=== PATIENT | male | born 1940 | race Caucasian/White ===

== ENCOUNTER 2017-03-16 17:57 | Observation (INO) ==
--- NOTE | 2017-03-16 18:02 | Emergency Department Note ---
Disposition Clinical Impression: Lower gastrointestinal hemorrhage Disposition: Admitted As Inpatient Condition: Fair [facility] - Forms: ED Satisfaction Letter GI Bleed HPI - General Chief complaint: ED GI Bleed Stated complaint: GI bleed Time Seen by Provider: 03/16/17 17:58 Source: patient, EMS Mode of arrival: EMS Limitations: no limitations Nursing Notes Reviewed: Yes Vital Signs Reviewed: Yes - History of Present Illness HPI Narrative: 76-year-old male with history of previous rectal and colon cancer also cancer of the liver who comes in with rectal bleeding. When [facility] this has been a week ago but he states it's actually been about a month ago it started intermittently. That worse today with clots. He states it similar to what he had after the diagnosis of colon cancer. Pt Subjective Complaint: blood streaked stool Onset (ago): week(s) Consistency: constant Severity: moderate Improves with: nothing Worsens with: nothing Context: history of GI bleed, liver disease Associated symptoms: Reports: abdominal pain - Related Data Home Medications Medication Instructions Recorded Confirmed OxyCODONE Immed Rel [Roxicodone 5 5 mg PO Q4H PRN 06/24/16 03/16/17 MG] Albuterol Sulfate [Albuterol 2 puff IH Q4H PRN 03/16/17 03/16/17 Inhaler] Capecitabine [Xeloda] 1,000 mg PO AD 03/16/17 03/16/17 Docusate [Colace] 100 mg PO BID 03/16/17 03/16/17 Previous Rx's Medication Instructions Recorded Megestrol Acetate [Megace] 800 mg PO DAILY #400 mls 01/05/17 Allergies Allergy/AdvReac Type Severity Reaction Status Date / Time No Known Allergies Allergy Verified 11/24/16 13:47 All systems ED: reviewed and negative except as stated. Constitutional: Denies: fever, chills, weakness, weight change Eyes: Denies: eye pain, eye discharge, vision change ENT ED: Denies: ear pain, throat pain, dental pain, hearing loss, epistaxis, congestion, dysphagia Cardiovascular: Denies: chest pain, palpitations, dyspnea on exertion, edema, syncope Respiratory: Denies: cough, dyspnea, wheezes, hemoptysis, stridor Gastrointestinal: Reports: abdominal pain, hematochezia. Denies: nausea, vomiting, diarrhea, constipation, hematemesis, melena Genitourinary: Denies: urgency, dysuria, frequency, hematuria Musculoskeletal: Denies: back pain, neck pain, arthralgia, myalgia Integumentary: Denies: rash, abrasion, lesions Neurological: Denies: headache, weakness, numbness, paresthesias, confusion, abnormal gait, vertigo Psychiatric: Denies: anxiety, depression, suicidal thoughts, homicidal thoughts , auditory hallucinations, visual hallucinations Endocrine: Denies: fatigue Hematological/Lymphatic: Denies: easy bleeding, easy bruising Allergic/Immunologic: Denies: facial swelling, urticaria Past Medical History - Past Medical History Medical history: Reports: cancer, CVA Surgical history: Reports: cholecystectomy, herniorrhaphy, other Psychiatric history: Reports: no psych history - Social History Smoking Status: Former smoker Smokeless Tobacco Status: No Alcohol use: Reports: rarely Drug use: Reports: none Physical Exam - General Limitations: no limitations General appearance: alert, in no apparent distress - Head Head exam: atraumatic, normocephalic, normal inspection - Eye Eye exam: Present: normal appearance, PERRL, EOMI - ENT ENT exam: normal exam, normal oropharynx, mucous membranes moist - Neck Neck exam: Present: normal inspection, full ROM, trachea midline - Chest Chest inspection: Present: normal inspection, symmetric chest wall rise - Respiratory Respiratory exam: Present: normal lung sounds bilaterally - Cardiovascular Cardiovascular exam: Present: regular rate, normal rhythm, normal heart sounds - Abdominal Exam Abdominal exam: Present: soft, tenderness. Absent: guarding, rebound - Rectal Exam Rectal exam: Present: bloody stool - Extremities Exam Extremities exam: Present: normal inspection - Expanded Lower Extremity Exam Neurovascular/Tendon exam: Absent: motor deficit, sensory deficit, tendon deficit Gait: observed and normal - Back Exam Back exam: Present: normal inspection, full ROM. Absent: tenderness - Neurological Exam Neurological exam: Present: alert, oriented X3 - Psychiatric Psychiatric exam: Present: normal affect, normal mood - Skin Skin exam: Present: warm, dry, intact, normal color Course - Reevaluation(s) Reevaluation #1: 76-year-old with a history of colon cancer comes in with rectal bleeding. He does have a drop in his hemoglobin about 2 g since his last one here. He T scan was negative for acute findings. The concern is recurrence of the cancer. Patient will be admitted for further evaluation and treatment. Time: 19:55 - Consultations Consultation #1: Discussed with , admit. Time: 19:55 Vital Signs Temperature 98.2 F 03/16/17 17:58 Pulse Rate 68 03/16/17 17:58 Respiratory Rate 18 03/16/17 17:58 Blood Pressure 121/82 03/16/17 17:58 O2 Sat by Pulse Oximetry 96 03/16/17 17:58 Temperature 98.2 F 03/16/17 17:58 Pulse Rate 68 03/16/17 17:58 Respiratory Rate 18 03/16/17 17:58 Blood Pressure 121/82 03/16/17 17:58 O2 Sat by Pulse Oximetry 96 03/16/17 17:58 Oxygen Delivery Oxygen Delivery Room Air GI Bleed - Lab Data Result diagrams: 03/16/17 18:19 03/16/17 18:19 Lab Results 03/16/17 03/16/17 03/16/17 Range/Units 18:19 18:19 18:19 WBC 6.1 (4.3-11.1) K/mcL RBC 4.16 L (4.19-5.50) M/mcL Hgb 12.2 L (12.9-16.9) g/dL Hct 38.0 (37.5-50.1) % MCV 91.3 (83.0-100.0) fL MCH 29.3 (28.0-33.3) pg MCHC 32.1 (31.6-35.5) g/dL RDW 19.9 H (11.5-14.5) % Plt Count 194 (140-400) K/mcL MPV 9.0 L (9.4-12.4) fL Immature Gran % 0.5 (0-4) % Seg Neutrophils % 71.9 % Lymphocytes % 14.1 % Monocytes % 12.0 % Eosinophils % 0.7 % Basophils % 0.8 % Neutrophils # 4.4 (1.6-8.9) K/mcL Lymphocytes # 0.9 (0.6-4.6) K/mcL Monocytes # 0.7 (0.0-1.3) K/mcL Eosinophils # 0.0 (0.0-0.6) K/mcL Basophils # 0.1 (0.0-0.2) K/mcL Immature Plt Fraction 1.9 (1.1-6.1) % PT 11.8 (9.4-12.1) Seconds INR 1.1 APTT 25.6 L (26.0-36.0) Seconds Sodium 137 (136-145) mEq/L Potassium 4.0 (3.5-5.1) mEq/L Chloride 108 H (98-107) mEq/L Carbon Dioxide 23 (23-29) mEq/L BUN 12 (8-23) mg/dL Creatinine 0.52 L (0.70-1.30) mg/dL Est GFR ( Amer) > 60 (> 60) Est GFR (Non-Af Amer) > 60 (> 60) BUN/Creatinine Ratio 23 (6-26) Glucose 93 (70-105) mg/dL Calculated Osmolality 283 (280-300) Calcium 9.1 (8.6-10.3) mg/dL Troponin I (< 0.04) ng/mL Blood Type Antibody Screen 03/16/17 03/16/17 Range/Units 18:19 18:19 WBC (4.3-11.1) K/mcL RBC (4.19-5.50) M/mcL Hgb (12.9-16.9) g/dL Hct (37.5-50.1) % MCV (83.0-100.0) fL MCH (28.0-33.3) pg MCHC (31.6-35.5) g/dL RDW (11.5-14.5) % Plt Count (140-400) K/mcL MPV (9.4-12.4) fL Immature Gran % (0-4) % Seg Neutrophils % % Lymphocytes % % Monocytes % % Eosinophils % % Basophils % % Neutrophils # (1.6-8.9) K/mcL Lymphocytes # (0.6-4.6) K/mcL Monocytes # (0.0-1.3) K/mcL Eosinophils # (0.0-0.6) K/mcL Basophils # (0.0-0.2) K/mcL Immature Plt Fraction (1.1-6.1) % PT (9.4-12.1) Seconds INR APTT (26.0-36.0) Seconds Sodium (136-145) mEq/L Potassium (3.5-5.1) mEq/L Chloride (98-107) mEq/L Carbon Dioxide (23-29) mEq/L BUN (8-23) mg/dL Creatinine (0.70-1.30) mg/dL Est GFR ( Amer) (> 60) Est GFR (Non-Af Amer) (> 60) BUN/Creatinine Ratio (6-26) Glucose (70-105) mg/dL Calculated Osmolality (280-300) Calcium (8.6-10.3) mg/dL Troponin I 0.03 (< 0.04) ng/mL Blood Type O POSITIVE Antibody Screen NEGATIVE - EKG Data EKG attestation: Yes I reviewed and interpreted this EKG. EKG shows normal: sinus rhythm Rate: normal Rhythm: NSR Interpretation: no acute changes
[2017-03-16 18:26] LABS: Hemoglobin 12.2 g/dL (12.9-16.9); Immature Granulocytes % 0.5 % (0-4); Immature Platelets 1.9 % (1.1-6.1); Lymphocytes % 14.1 %; Mean Corpuscular HGB Conc 32.1 g/dL (31.6-35.5); Mean Corpuscular Hemoglobin 29.3 pg (28.0-33.3); Mean Corpuscular Volume 91.3 fL (83.0-100.0); Platelet Count 194 K/mcL (140-400); Red Blood Count 4.16 M/mcL (4.19-5.50); Red Cell Distribution Width 19.9 % (11.5-14.5); Segmented Neutrophils % 71.9 %
[2017-03-16 18:27] LABS: Basophils # 0.1 K/mcL (0.0-0.2); Basophils % 0.8 %; Eosinophils % 0.7 %; Lymphocytes # 0.9 K/mcL (0.6-4.6); Monocytes # 0.7 K/mcL (0.0-1.3); Neutrophils # 4.4 K/mcL (1.6-8.9)
[2017-03-16 18:31] LABS: INR 1.1; Prothrombin Time 11.8 Seconds (9.4-12.1)
[2017-03-16 18:34] LABS: Activated Partial Thrombo Time 25.6 Seconds (26.0-36.0)
[2017-03-16 18:39] LABS: BUN/Creatinine Ratio 23 (6-26); Blood Urea Nitrogen 12 mg/dL (8-23); Calcium 9.1 mg/dL (8.6-10.3); Carbon Dioxide 23 mEq/L (23-29); Chloride 108 mEq/L (98-107); Glucose 93 mg/dL (70-105); Osmolality,Calculated 283 (280-300); Sodium 137 mEq/L (136-145); eGFR For African Americans > 60 (> 60); eGFR For Non-African Americans > 60 (> 60)
[2017-03-16] MEDS ORDERED: Naloxone 0.4 MG/ML INJ IVP PRN (23:24)
--- NOTE | 2017-03-17 00:02 | Internal Med History&Physical ---
Date of Encounter: 03/16/17 Time of Encounter: 23:30 Assessment and Plan (1) Bloody diarrhea Current visit: No Status: Acute Concerning for recurrence of colon cancer. CT without clear evidence of mass. - Consult GI for assistance - 2 large bore IVs - Type/screen - Q8H H&H (2) Rectal cancer Current visit: No Status: Acute Followed by [facility]. Has liver mets per report (s/p resection) - Hold chemo for tonight, can discuss resuming with oncology if hospitalization is prolonged (3) COPD (chronic obstructive pulmonary disease) Current visit: Yes Status: Acute On PRN O2 at home - Continue O2 PRN Qualifiers: COPD type: emphysema Emphysema type: unspecified Qualified Code(s): J43.9 - Emphysema, unspecified Internal Medicine - H&P: HPI Chief complaint: Bright red blood per rectum Admitted From: Emergency Dept Plans for Post Hospital Care: Home History of present illness: Mr. Zambrano is a 76 year old male with history of colon cancer diagnosed 12/2015 s/p surgery, radiation and currently on chemotherapy who presented to the [facility] this afternoon for hematochezia. He states that he has seen small amounts of bright red blood in his stool occasionally for the past month or so. This morning, however, there was a large amount of blood, it was dark and clotted. [facility] for further management. He states that he has been feeling lightheaded occasionally. He had several stools today but none since 1630. Hgb was found to be 12 in the ED. He endorses abdominal pain which has been present since his colon surgery 09/2016 in [place] - the pain is unchanged from baseline. He was mildly nauseated yesterday but has not vomited. Past Med Surg Social Fam HX - Past Medical History Medical history: cancer (Colon cancer followed by Dr. Dahl - on capcitabine), CVA Psychiatric history: no psych history - Past Surgical History Surgical History: cholecystectomy, herniorrhaphy, other - Social History Smoking Status: Former smoker Smokeless Tobacco Status: No Alcohol use: rarely Drug use: none - Family History Sister Hx Family Cancer: Yes (colon cancer) Internal Medicine - H&P: Meds OxyCODONE Immed Rel [Roxicodone 5 MG] 5 mg PO Q4H PRN 06/24/16 [History] Megestrol Acetate [Megace] 800 mg PO DAILY #400 mls 01/05/17 [Rx] Albuterol Sulfate [Albuterol Inhaler] 2 puff IH Q4H PRN 03/16/17 [History] Capecitabine [Xeloda] 1,000 mg PO AD 03/16/17 [History] Docusate [Colace] 100 mg PO BID 03/16/17 [History] 3 Allergy/AdvReac Type Severity Reaction Status Date / Time No Known Allergies Allergy Verified 11/24/16 13:47 All Systems PM: A 10-system review of systems was performed and is negative for pertinent findings except as documented above in the HPI. - Constitutional Vitals: Temp Pulse Resp BP Pulse Ox 98.0 F 68 14 120/79 95 03/16/17 21:32 03/16/17 21:32 03/16/17 21:32 03/16/17 21:32 03/16/17 21:32 General appearance: Present: A&O X 3, no acute distress - Head Head exam: Present: atraumatic - Eye Eye exam: Present: EOMI, sclera anicteric - ENT ENT exam: Present: mucous membranes moist - Neck Neck exam general surgery: Present: supple - Respiratory Respiratory exam: Present: CTAB - Cardiovascular Cardiovascular exam: Present: RRR. Absent: diastolic murmur, gallop, rubs, systolic murmur - GI/Abdominal GI/Abdominal exam: Present: soft, tenderness (mildly tender throughout). Absent : guarding, rebound - Extremities Exam Extremities exam: Absent: pedal edema - Neurological Exam Neurological exam: Present: no focal deficits - Skin Skin exam: Absent: rash Internal Med - H&P Results - Labs CBC & Chem 7: 03/16/17 18:19 03/16/17 18:19
[2017-03-17 00:10] LABS: Hemoglobin 11.9 g/dL (12.9-16.9)
[2017-03-17] MEDS: 0.9 % Sodium Chloride 1,000 ML IVC SCH (04:55)
[2017-03-17] MEDS: *HR* OxyCODONE Immed Rel 5 MG TABLET PO PRN (04:55)
[2017-03-17] MEDS: Megestrol Acetate 400 MG/10 ML UDC PO SCH (09:02)
--- NOTE | 2017-03-17 10:28 | Gastroenterology Consult Note ---
<Parish Mcneal Sabine - Last Filed: 03/17/17 10:33> Date of Encounter: 03/17/17 Time of Encounter: 10:00 - Assessment and plan (1) Lower gastrointestinal hemorrhage Current Visit: Yes Status: Acute Assessment and plan: Pt with history of stage IV colon cancer who presented with rectal bleeding. Continue to monitor CBC and transfuse as needed. Plan for colonoscopy tomorrow. Clear liquid diet today, no red or purple. NPO at midnight. If unable tolerate NuLytely please use MiraLAX prep. If not clear by 6 AM, give 2 tap water enemas. (2) Rectal cancer Current Visit: No Status: Acute (3) Liver metastases Current Visit: No Status: Acute - Time Spent With Patient Total time spent is greater than 50% in coordination of care (as documented) at patient's floor/unit and/or counseling patient: GI History of Present Illness - Data of Consult Patient: new to practice Consult date: 03/17/17 Requesting Physician: Krista Burroughs - Consult Narrative Reason for consult: Rectal bleeding History of present illness: Mr. Zambrano is a 76 year old male with PMHx of stage IV colon cancer (with mets to liver) diagnosed 12/2015 s/p surgery, radiation, and currently on chemotherapy, s/p left lateral liver segmentectomy 09/2016, who presented to the [facility] with hematochezia. He states that he has seen small amounts of bright red blood in his stool occasionally for the past monthand the morning of admission he reports a large amount of blood, which was dark and clotted. He went to the [facility] and was sent to [facility] for further management. He endorses abdominal pain which has been present since his colon surgery 09/2016 in [place] - the pain is unchanged from baseline. We have been consulted to evaluate his rectal bleeding. Hgb on admission was 12.2 and this AM Hgb 11.9. Procedures: Colonoscopy 12/14/2016 Dr. Jackson: Diverticulosis, radiation colitis , multiple telengectasia. Colonoscopy 09/2015: low-grade rectal adenocarcinoma NSAIDs: None Anticoagulation: None Past Med Surg Social Fam HX - Past Medical History Medical history: cancer (Colon cancer followed by Dr. Dahl - on capcitabine), CVA Psychiatric history: no psych history - Past Surgical History Surgical History: cholecystectomy, herniorrhaphy, other - Social History Smoking Status: Former smoker Smokeless Tobacco Status: No Alcohol use: rarely Drug use: none - Family History Sister Hx Family Cancer: Yes (colon cancer) - Gastrointestinal Gastrointestinal: Present: as per HPI - Constitutional Constitutional: as per HPI - EENT Eyes: as per HPI Ears: Present: as per HPI Nose, mouth and throat: Present: as per HPI - Cardiovascular Cardiovascular ROS: Present: as per HPI - Respiratory Respiratory IM: Present: as per HPI - Genitourinary Genitourinary: Absent: change in color, Urinary frequency - Neurological ROS Neurological GI: Present: as per HPI - Hematologic/Lymphatic Hematologic/Lymphatic pediatric: Present: as per HPI - Musculoskeletal Musculoskeletal ROS GI: Present: as per HPI - Integumentary Integumentary GI: Present: as per HPI - Psychiatric ROS Psychiatric GI: Present: as per HPI - Endocrine Endocrine IM: Present: as per HPI - Constitutional Vitals: Temp Pulse Resp BP Pulse Ox 97.7 F 69 20 111/73 92 03/17/17 06:58 03/17/17 06:58 03/17/17 06:58 03/17/17 06:58 03/17/17 06:58 General appearance: Present: cooperative, A&O X 3, no acute distress, answers questions appropriately - Head Head exam: Present: atraumatic, normocephalic - Eye Eye exam: Present: normal appearance, sclera anicteric - ENT ENT exam: Present: mucous membranes dry - Neck Neck exam general surgery: Present: normal inspection, trachea midline - Respiratory Respiratory exam: Present: CTAB. Absent: rales, rhonchi - Cardiovascular Cardiovascular exam: Present: RRR, +S1, +S2 - GI/Abdominal GI/Abdominal exam: Present: soft, tenderness (Mild, generalized), no peritoneal signs. Absent: distended, firm, guarding Additional comments: Midline abdominal scar. - Rectal Rectal exam: Present: deferred - Extremities Exam Extremities exam: Present: warm - Neurological Exam Neurological exam: Present: no focal deficits - Psychiatric Psychiatric exam: Present: normal affect, normal mood - Skin Skin exam: Present: dry, intact, normal color, warm Results - Labs CBC & Chem 7: 03/17/17 00:01 03/16/17 18:19 Labs: Last Result Calcium 9.1 mg/dL (8.6-10.3) 03/16/17 18:19 Troponin I 0.03 ng/mL (< 0.04) 03/16/17 18:19 Entire Visit Hgb 11.9 g/dL (12.9-16.9) L 03/17/17 00:01 Hct 37.0 % (37.5-50.1) L 03/17/17 00:01 PT 11.8 Seconds (9.4-12.1) 03/16/17 18:19 - ABG ABG results: PT/INR, D-dimer PT 11.8 Seconds (9.4-12.1) 03/16/17 18:19 Consult Discharge Plan - Plan Referrals: [facility] [Outside] <Noelle Veronica - Last Filed: 03/17/17 14:25> Date of Encounter: 03/17/17 Time of Encounter: 14:00 - Time Spent With Patient Total time spent is greater than 50% in coordination of care (as documented) at patient's floor/unit and/or counseling patient: GI History of Present Illness - Data of Consult Requesting Physician: Krista Burroughs - Consult Narrative History of present illness: Mr. Zambrano is a 76 year old male - Constitutional Vitals: Temp Pulse Resp BP Pulse Ox 97.8 F 81 18 107/69 95 03/17/17 11:44 03/17/17 11:44 03/17/17 11:44 03/17/17 11:44 03/17/17 11:44 Results - Labs CBC & Chem 7: 03/17/17 00:01 03/16/17 18:19 Labs: Last Result Calcium 9.1 mg/dL (8.6-10.3) 03/16/17 18:19 Troponin I 0.03 ng/mL (< 0.04) 03/16/17 18:19 Entire Visit Hgb 11.9 g/dL (12.9-16.9) L 03/17/17 00:01 Hct 37.0 % (37.5-50.1) L 03/17/17 00:01 PT 11.8 Seconds (9.4-12.1) 03/16/17 18:19 - ABG ABG results: PT/INR, D-dimer PT 11.8 Seconds (9.4-12.1) 03/16/17 18:19 - Attending Attestation I examined this patient and my medical decision-making was reviewed with the Resident Physician. I agree with the documented findings, disposition and treatment plan as described except to the extent set forth below.
--- NOTE | 2017-03-17 15:28 | Internal Med Progress Note ---
Date of Encounter: 03/17/17 Time of Encounter: 10:45 - Assessment and plan (1) Lower gastrointestinal hemorrhage Current Visit: Yes Status: Acute Assessment and plan: Patient presenting with hematochezia. Hemoglobin levels have been stable. Appears to be improving. Gastroenterology consult. Plan for colonoscopy tomorrow. Patient will be prepped today. We will continue to monitor blood counts. (2) COPD (chronic obstructive pulmonary disease) Current Visit: Yes Status: Acute Assessment and plan: Not in acute exacerbation. O2 supplementation as needed. Bronchodilators as needed. Qualifiers: COPD type: emphysema Emphysema type: unspecified Qualified Code(s): J43.9 - Emphysema, unspecified (3) Rectal cancer Current Visit: Yes Status: Acute Assessment and plan: Continue to hold chemotherapy until after colonoscopy. - Subjective Interval history: Patient is awake and alert. Feeling better today. No new episodes of hematochezia. Denies any abdominal pain. Does have a headache. No blurred vision. No focal weakness or numbness. No nausea or vomiting - Constitutional Vitals: Temp Pulse Resp BP Pulse Ox 97.8 F 81 18 107/69 95 03/17/17 11:44 03/17/17 11:44 03/17/17 11:44 03/17/17 11:44 03/17/17 11:44 General appearance: Present: cooperative, A&O X 3, no acute distress, answers questions appropriately - Respiratory Respiratory exam: Present: CTAB. Absent: accessory muscle use, rales, rhonchi, wheezes - Cardiovascular Cardiovascular exam: Present: RRR, +S1, +S2. Absent: diastolic murmur, gallop, rubs, systolic murmur - GI/Abdominal GI/Abdominal exam: Present: normal bowel sounds, soft, no peritoneal signs. Absent: distended, tenderness - Extremities Exam Extremities exam: Present: warm, radial pulses palpable and symmetrical. Absent : calf tenderness, cyanotic, pedal edema - Neurological Exam Neurological exam: Present: alert, CN II-XII intact, oriented X3, no focal deficits. Absent: facial droop, speech deficit Internal Medicine: Result - Labs CBC & Chem 7: 03/17/17 00:01 03/16/17 18:19 Labs: Short CBC 03/17/17 Range/Units 00:01 Hgb 11.9 L (12.9-16.9) g/dL Hct 37.0 L (37.5-50.1) % - ABG Interpretation ABG results: PT/INR, D-dimer PT 11.8 Seconds (9.4-12.1) 03/16/17 18:19 Consult Discharge Plan - Plan Referrals: [facility] [Outside]
[2017-03-17] MEDS ORDERED: Polyethylene Glycol 3350 255 GM POWDER PO ONE (16:14)
[2017-03-17] MEDS ORDERED: SODIUM CHLORIDE/NAHCO3/KCL/PEG 4,000 ML SOLN.RECON PO ONE (17:00)
[2017-03-18] MEDS: 0.9 % Sodium Chloride 1,000 ML IVC SCH ×3 (03:02→12:51)
[2017-03-18 05:08] LABS: Basophils % 0.5 %; Eosinophils # 0.1 K/mcL (0.0-0.6); Eosinophils % 1.5 %; Hematocrit 36.9 % (37.5-50.1); Hemoglobin 12.1 g/dL (12.9-16.9); Immature Granulocytes % 0.5 % (0-4); Lymphocytes # 0.8 K/mcL (0.6-4.6); Lymphocytes % 13.1 %; Mean Corpuscular HGB Conc 32.8 g/dL (31.6-35.5); Mean Corpuscular Volume 91.6 fL (83.0-100.0); Mean Platelet Volume 9.4 fL (9.4-12.4); Monocytes # 0.8 K/mcL (0.0-1.3); Monocytes % 12.2 %; Neutrophils # 4.5 K/mcL (1.6-8.9); Platelet Count 173 K/mcL (140-400); Red Blood Count 4.03 M/mcL (4.19-5.50); Red Cell Distribution Width 19.6 % (11.5-14.5); Segmented Neutrophils % 72.2 %
[2017-03-18] MEDS: Megestrol Acetate 400 MG/10 ML UDC PO SCH (09:38)
[2017-03-18] MEDS: *HR* OxyCODONE Immed Rel 5 MG TABLET PO PRN ×2 (09:38→16:55)
[2017-03-18] MEDS ORDERED: *HR* Midazolam HCl 5 MG/5 ML VIAL IVP ONE ×2 (14:23→14:33)
[2017-03-18] MEDS ORDERED: Tetracaine/Benzocaine/Butamben 200MG/SPRAY (100SPY/BOT) MM ONE (14:23)
[2017-03-18] MEDS ORDERED: *HR* FentaNYL (PF) 100 MCG/2 ML VIAL IVP ONE (14:23)
[2017-03-18] MEDS ORDERED: Simethicone 40 MG/0.6 ML MLS IR ONE (14:23)
[2017-03-18] MEDS ORDERED: *HR* FentaNYL (PF) 100 MCG/2 ML VIAL ONE (14:33)
--- NOTE | 2017-03-18 14:58 | Pre-Sedation Evaluation ---
Pre-sedation evaluation - Pre-sedation checklist Date of procedure: 03/18/17 Procedure: Colonscopy Recent Vitals: Last Vital Signs Temp 97.8 F 03/18/17 14:20 Pulse 61 03/18/17 14:20 Resp 18 03/18/17 14:20 BP 111/74 03/18/17 14:20 Pulse Ox 92 03/18/17 14:20 H&P (including ROS) documented in medical record: Yes Previous reaction to sedatives/anesthetics: No Dietary Status: NPO after Midnight Dentition: No loose teeth or bridges ASA Classification *see protocol: CLASS III-Severe systemic disease Plan of Care: Pt appropriate candidate for procedure/moderate/conscious sedation , Risks/benefits of procedure/sedation discussed w/ patient/family
--- NOTE | 2017-03-18 16:11 | Electrocardiograph Report ---
[place] [id number] Test Date: 2017-03-16 Pat Name: Mamadou Zambrano Department: 103 Room: 3A44 Gender: M Utility Locator: GERALDO : 1940 Requested By: Nicolas Dorado Order Number: [id number] Reading MD: Ethan Dumont MD Measurements Intervals [place] Rate: 69 P: 54 [facility]: 178 QRS: 3 QRSD: 90 T: 15 QT: 380 QTc: 400 Interpretive Statements SINUS RHYTHM BASELINE ARTIFACT Electronically Signed On 03-18-2017 16:09:33 EST by Ethan Dumont MD
--- NOTE | 2017-03-18 16:24 | Internal Med Progress Note ---
Date of Encounter: 03/18/17 Time of Encounter: 16:22 - Assessment and plan (1) Lower gastrointestinal hemorrhage Current Visit: Yes Status: Acute Assessment and plan: Blood counts have been stable since hospitalization. 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 He underwent hemostasis without an plasma coagulation. We will monitor blood counts overnight. If stable, plan for discharge tomorrow. Resume diet. Gastroenterology also recommends sigmoidoscopy repeated in 3-4 weeks. We will make arrangements for this as an outpatient. (2) COPD (chronic obstructive pulmonary disease) Current Visit: Yes Status: Acute Assessment and plan: Not in acute exacerbation. Continue bronchodilators as needed Qualifiers: COPD type: emphysema Emphysema type: unspecified Qualified Code(s): J43.9 - Emphysema, unspecified (3) Rectal cancer Current Visit: Yes Status: Acute Assessment and plan: Follow-up outpatient with oncology after discharge - Subjective Interval history: Patient was seen earlier today. Doing better. Does feel weak overall because of his diarrhea related to her bowel prep. Has not noticed any further dark stools or blood in his stools. He was then taken for colonoscopy. Tolerated procedure well. - Constitutional Vitals: Temp Pulse Resp BP Pulse Ox 97.4 F L 76 16 111/52 94 03/18/17 15:52 03/18/17 15:52 03/18/17 15:52 03/18/17 15:52 03/18/17 15:52 General appearance: Present: cooperative, A&O X 3, no acute distress, answers questions appropriately - Respiratory Respiratory exam: Present: CTAB. Absent: accessory muscle use, rales, rhonchi, wheezes - Cardiovascular Cardiovascular exam: Present: RRR, +S1, +S2. Absent: diastolic murmur, gallop, rubs, systolic murmur - GI/Abdominal GI/Abdominal exam: Present: normal bowel sounds, soft, no peritoneal signs. Absent: distended, tenderness - Extremities Exam Extremities exam: Present: warm, radial pulses palpable and symmetrical. Absent : calf tenderness, cyanotic, pedal edema Internal Medicine: Result - Labs CBC & Chem 7: 03/18/17 04:45 03/16/17 18:19 Labs: Short CBC 03/18/17 Range/Units 04:45 WBC 6.2 (4.3-11.1) K/mcL Hgb 12.1 L (12.9-16.9) g/dL Hct 36.9 L (37.5-50.1) % Plt Count 173 (140-400) K/mcL Neutrophils # 4.5 (1.6-8.9) K/mcL - ABG Interpretation ABG results: PT/INR, D-dimer PT 11.8 Seconds (9.4-12.1) 03/16/17 18:19 Consult Discharge Plan - Plan Referrals: [facility] [Outside] - 03/29/17 9:05 am
[2017-03-18] MEDS ORDERED: (Capecitabine [Xeloda] 1,000 MG) PO SCH (16:30)
[2017-03-18] MEDS: CAPECITABINE 500 MG PO SCH (21:26)
[2017-03-19] MEDS: *HR* OxyCODONE Immed Rel 5 MG TABLET PO PRN ×2 (02:57→08:20)
[2017-03-19 04:25] LABS: Basophils % 0.5 %; Eosinophils # 0.1 K/mcL (0.0-0.6); Hematocrit 35.9 % (37.5-50.1); Hemoglobin 11.6 g/dL (12.9-16.9); Immature Granulocytes % 0.2 % (0-4); Lymphocytes # 0.6 K/mcL (0.6-4.6); Mean Corpuscular HGB Conc 32.3 g/dL (31.6-35.5); Mean Corpuscular Hemoglobin 30.1 pg (28.0-33.3); Mean Platelet Volume 9.1 fL (9.4-12.4); Monocytes # 0.8 K/mcL (0.0-1.3); Monocytes % 9.1 %; Neutrophils # 6.8 K/mcL (1.6-8.9); Platelet Count 170 K/mcL (140-400); Red Blood Count 3.86 M/mcL (4.19-5.50); Red Cell Distribution Width 19.9 % (11.5-14.5); Segmented Neutrophils % 82.2 %
[2017-03-19 07:05] VITALS: BP 105/76
[2017-03-19] MEDS: Megestrol Acetate 400 MG/10 ML UDC PO SCH (08:20)
[2017-03-19] MEDS: CAPECITABINE 500 MG PO SCH (08:20)
--- NOTE | 2017-03-19 09:12 | Discharge Summary ---
Date of Encounter: 03/19/17 Time of Encounter: 09:10 - Discharge Diagnosis (1) Lower gastrointestinal hemorrhage Priority: Primary Status: Acute (2) COPD (chronic obstructive pulmonary disease) Priority: Secondary Status: Acute Qualifiers: COPD type: emphysema Emphysema type: unspecified Qualified Code(s): J43.9 - Emphysema, unspecified (3) Rectal cancer Priority: Secondary Status: Acute - Discharge Medications Home Medications: OxyCODONE Immed Rel [Roxicodone 5 MG] 5 mg PO Q4H PRN 06/24/16 [History] Megestrol Acetate [Megace] 800 mg PO DAILY #400 mls 01/05/17 [Rx] Albuterol Sulfate [Albuterol Inhaler] 2 puff IH Q4H PRN 03/16/17 [History] Capecitabine [Xeloda] 1,000 mg PO AD 03/16/17 [History] Docusate [Colace] 100 mg PO BID 03/16/17 [History] Allergies/Adverse Reactions: 3 Allergy/AdvReac Type Severity Reaction Status Date / Time No Known Allergies Allergy Verified 11/24/16 13:47 Date of admission: 03/16/17 20:13 Primary care physician: PCP [place] Consults: 03/16/17 21:15 Consult to Pastoral Services [CONS] Routine Comment: pt request 03/16/17 23:25 Consult to Gastroenterology [CONS] Stat Consulting Provider: Idalia Phan Reason for Consult: bright red blood per rectum in setting of known colon cancer Call Completed: No 03/18/17 16:23 Consult to Occupational Therapy [CONS] Routine Comment: Evaluate, develop and implement POC Reason for Consult: Weakness - eval and treat Consult to Physical Therapy [CONS] Routine Comment: Evaluate, develop and implement POC Reason for Consult: weakness PT/OT eval Consult to Road Crew Member [CONS] Routine Reason for SW Consult: Weakness - eval and treat Discharging clinician: Mayra Hawk Anticipated date of discharge: 03/19/17 - Patient Status Disposition: Home, Self-Care Condition: Good Functional capacity at discharge: independent ambulation - Discharge Instructions Instructions: Chronic Obstructive Pulmonary Disease (DC) Follow Up With: [facility] [Outside] - 03/29/17 9:05 am Noelle Veronica MD [Partnered Physician] - (3-4 weeks) - Diet and Activity Activity: resume usual activities as tolerated Diet: low fat, low cholesterol, low salt diet Hospital course: Mr. Zambrano is a 76 year old male patient with history of colon cancer status post surgery and radiation who is currently receiving physical therapy was hospitalized here after presenting with complaints of melena. He was evaluated in the ER and then placed in the hospital for observation. He was kept nothing by mouth and gastroenterology was consulted. Patient then underwent bowel prep for colonoscopy. 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 Hemostasis with Shaggy plasma colored lesion was performed. His blood counts have remained stable and he has had no further episodes of GI bleed. He should not did report that he has trouble getting up and moving from his bed and requested bed rails. Since he is a [facility] patient, he will need to have that arranged through the [facility] hospital system. He is advised to follow up with his primary care provider and make necessary arrangements for this. Presently he is tolerating oral diet well and is stable to be discharged home. She will follow up with GI for flexible sigmoidoscopy in 3-4 weeks. - Time Spent with Patient Total time spent providing and/or coordinating discharge services: Less than 30 minutes (25 min) - Constitutional Vitals: Temp Pulse Resp BP Pulse Ox 98.4 F 82 16 105/76 94 03/19/17 06:51 03/19/17 06:51 03/19/17 06:51 03/19/17 06:51 03/19/17 06:51 General appearance: Present: cooperative, A&O X 3, no acute distress, answers questions appropriately - Neck Neck exam general surgery: Present: supple, trachea midline. Absent: lymphadenopathy - Respiratory Respiratory exam: Present: CTAB. Absent: accessory muscle use, rales, rhonchi, wheezes - Cardiovascular Cardiovascular exam: Present: RRR, +S1, +S2. Absent: diastolic murmur, gallop, rubs, systolic murmur - GI/Abdominal GI/Abdominal exam: Present: normal bowel sounds, soft, tenderness (at surgical incision), no peritoneal signs. Absent: distended - Extremities Exam Extremities exam: Present: warm, radial pulses palpable and symmetrical. Absent : calf tenderness, cyanotic, pedal edema - Neurological Exam Neurological exam: Present: CN II-XII intact, oriented X3, no focal deficits. Absent: facial droop, speech deficit
== END 2017-03-19 10:59 | disposition home or self-care (01) ==
LOC: EMEROO 17:57 → 3ANU 17:57 → SUATTDRO 20:13 → 3ANU 21:03
PROVIDERS: ADMIT Internal Medicine; ATTEND Internal Medicine
PROC: ENDOCCB (2017-03-18 14:30)

== ENCOUNTER 2017-04-06 17:15 | Inpatient (IN) ==
--- NOTE | 2017-04-06 17:22 | Emergency Department Note ---
Disposition Clinical Impression: Lower gastrointestinal hemorrhage Disposition: Admitted As Inpatient Condition: Fair Forms: ED Satisfaction Letter Time of Disposition: 19:33 GI Bleed HPI - General Chief complaint: ED GI Bleed Stated complaint: GI bleed Time Seen by Provider: 04/06/17 17:16 Source: patient, EMS Mode of arrival: EMS Limitations: no limitations Nursing Notes Reviewed: Yes Vital Signs Reviewed: Yes - History of Present Illness HPI Narrative: 76-year-old who was recently hospitalized here for stage IV colon cancer whose had persistent rectal bleeding. The patient had on colonoscopy evidence of bleeding from the rectum that was cauterized he has multiple lesions throughout his colon. Shins were characterizes angioectasia. Pt Subjective Complaint: gross bloody stools Onset (ago): day(s) Consistency: intermittent Severity: moderate Improves with: nothing Worsens with: nothing Context: other (Stage IV rectal cancer) - Related Data Home Medications Medication Instructions Recorded Confirmed OxyCODONE Immed Rel [Roxicodone 5 5 mg PO Q4H PRN 06/24/16 03/30/17 MG] Albuterol Sulfate [Albuterol 2 puff IH Q4H PRN 03/16/17 04/06/17 Inhaler] Previous Rx's Medication Instructions Recorded Megestrol Acetate [Megace] 800 mg PO DAILY #400 mls 01/05/17 Capecitabine [Xeloda] 1,000 mg PO AD #56 tablet 03/30/17 Allergies Allergy/AdvReac Type Severity Reaction Status Date / Time No Known Allergies Allergy Verified 03/30/17 09:31 Constitutional: Denies: fever, chills, weakness, weight change Eyes: Denies: eye pain, eye discharge, vision change ENT ED: Denies: ear pain, throat pain, dental pain, hearing loss, epistaxis, congestion, dysphagia Cardiovascular: Denies: chest pain, palpitations, dyspnea on exertion, edema, syncope Respiratory: Denies: cough, dyspnea, wheezes, hemoptysis, stridor Gastrointestinal: Reports: hematochezia. Denies: abdominal pain, nausea, vomiting, diarrhea, constipation, hematemesis, melena Genitourinary: Denies: urgency, dysuria, frequency, hematuria Musculoskeletal: Denies: back pain, neck pain, arthralgia, myalgia Integumentary: Denies: rash, abrasion, lesions Neurological: Denies: headache, weakness, numbness, paresthesias, confusion, abnormal gait, vertigo Psychiatric: Denies: anxiety, depression, suicidal thoughts, homicidal thoughts , auditory hallucinations, visual hallucinations Endocrine: Denies: fatigue Hematological/Lymphatic: Denies: easy bleeding, easy bruising Allergic/Immunologic: Denies: facial swelling, urticaria Past Medical History - Past Medical History Medical history: Reports: cancer, CVA Surgical history: Reports: cholecystectomy, herniorrhaphy, other Psychiatric history: Reports: no psych history - Social History Smoking Status: Never smoker Smokeless Tobacco Status: No Alcohol use: Reports: none Drug use: Reports: none Physical Exam - General General appearance: alert - Head Head exam: atraumatic, normocephalic, normal inspection - Eye Eye exam: Present: normal appearance, PERRL, EOMI - ENT ENT exam: normal exam, normal oropharynx, mucous membranes moist - Neck Neck exam: Present: normal inspection, full ROM, trachea midline - Chest Chest inspection: Present: normal inspection, symmetric chest wall rise - Respiratory Respiratory exam: Present: normal lung sounds bilaterally - Cardiovascular Cardiovascular exam: Present: regular rate, normal rhythm, normal heart sounds - Abdominal Exam Abdominal exam: Present: soft, tenderness. Absent: guarding, rebound Abdominal tenderness: Present: mild - Rectal Exam Residue Furnace Operator present during exam: Yes (Rectal deferred as the patient has gross blood externally) - Extremities Exam Extremities exam: Present: normal inspection, full ROM. Absent: tenderness, pedal edema - Expanded Lower Extremity Exam Neurovascular/Tendon exam: Absent: motor deficit, sensory deficit, tendon deficit Gait: observed and normal - Back Exam Back exam: Present: normal inspection, full ROM. Absent: tenderness - Neurological Exam Neurological exam: Present: alert, oriented X3 - Psychiatric Psychiatric exam: Present: normal affect, normal mood - Skin Skin exam: Present: warm, dry, intact, normal color Course - Reevaluation(s) Reevaluation #1: 36-year-old with stage IV rectal cancer who's had some bleeding from his rectum in the past. Comes in today with worsening bleeding. Consultation obtained with gastroenterology who will see the patient tomorrow. Patient is stable from a vital sign point of view. Patient will be admitted for further evaluation and treatment. Time: 19:33 - Consultations Consultation #1: Discussed with Dr. Veronica, admit to hospitalist he will see in consult. Time: 17:31 Consultation #2: Discussed with Dr. Conley, admit. Time: 19:32 Vital Signs Temperature 97.4 F L 04/06/17 17:17 Pulse Rate 74 04/06/17 17:17 Respiratory Rate 13 04/06/17 17:17 Blood Pressure 127/94 04/06/17 17:17 O2 Sat by Pulse Oximetry 95 04/06/17 17:17 Temperature 97.4 F L 04/06/17 17:17 Pulse Rate 70 04/06/17 19:02 Respiratory Rate 15 04/06/17 19:02 Blood Pressure 135/94 04/06/17 19:02 O2 Sat by Pulse Oximetry 95 04/06/17 19:02 Oxygen Delivery Oxygen Delivery Nasal Cannula GI Bleed - Lab Data Result diagrams: 04/06/17 17:52 04/06/17 17:52 Lab Results 04/06/17 04/06/17 04/06/17 Range/Units 17:52 17:52 17:52 WBC 8.1 (4.3-11.1) K/mcL RBC 3.78 L (4.19-5.50) M/mcL Hgb 11.5 L (12.9-16.9) g/dL Hct 35.5 L (37.5-50.1) % MCV 93.9 (83.0-100.0) fL MCH 30.4 (28.0-33.3) pg MCHC 32.4 (31.6-35.5) g/dL RDW 18.2 H (11.5-14.5) % Plt Count 207 (140-400) K/mcL MPV 9.1 L (9.4-12.4) fL Immature Gran % 0.4 (0-4) % Seg Neutrophils % 82.0 % Lymphocytes % 9.0 % Monocytes % 7.7 % Eosinophils % 0.4 % Basophils % 0.5 % Neutrophils # 6.6 (1.6-8.9) K/mcL Lymphocytes # 0.7 (0.6-4.6) K/mcL Monocytes # 0.6 (0.0-1.3) K/mcL Eosinophils # 0.0 (0.0-0.6) K/mcL Basophils # 0.0 (0.0-0.2) K/mcL PT 11.4 (9.4-12.1) Seconds INR 1.1 APTT 25.4 L (26.0-36.0) Seconds Sodium 136 (136-145) mEq/L Potassium 4.2 (3.5-5.1) mEq/L Chloride 104 (98-107) mEq/L Carbon Dioxide 27 (23-29) mEq/L BUN 13 (8-23) mg/dL Creatinine 0.52 L (0.70-1.30) mg/dL Est GFR ( Amer) > 60 (> 60) Est GFR (Non-Af Amer) > 60 (> 60) BUN/Creatinine Ratio 25 (6-26) Glucose 99 (70-105) mg/dL Calculated Osmolality 282 (280-300) Calcium 9.0 (8.6-10.3) mg/dL Blood Type Antibody Screen 04/06/17 Range/Units 17:52 WBC (4.3-11.1) K/mcL RBC (4.19-5.50) M/mcL Hgb (12.9-16.9) g/dL Hct (37.5-50.1) % MCV (83.0-100.0) fL MCH (28.0-33.3) pg MCHC (31.6-35.5) g/dL RDW (11.5-14.5) % Plt Count (140-400) K/mcL MPV (9.4-12.4) fL Immature Gran % (0-4) % Seg Neutrophils % % Lymphocytes % % Monocytes % % Eosinophils % % Basophils % % Neutrophils # (1.6-8.9) K/mcL Lymphocytes # (0.6-4.6) K/mcL Monocytes # (0.0-1.3) K/mcL Eosinophils # (0.0-0.6) K/mcL Basophils # (0.0-0.2) K/mcL PT (9.4-12.1) Seconds INR APTT (26.0-36.0) Seconds Sodium (136-145) mEq/L Potassium (3.5-5.1) mEq/L Chloride (98-107) mEq/L Carbon Dioxide (23-29) mEq/L BUN (8-23) mg/dL Creatinine (0.70-1.30) mg/dL Est GFR ( Amer) (> 60) Est GFR (Non-Af Amer) (> 60) BUN/Creatinine Ratio (6-26) Glucose (70-105) mg/dL Calculated Osmolality (280-300) Calcium (8.6-10.3) mg/dL Blood Type O POSITIVE Antibody Screen NEGATIVE
[2017-04-06 18:04] LABS: Basophils % 0.5 %; Eosinophils % 0.4 %; Hematocrit 35.5 % (37.5-50.1); Hemoglobin 11.5 g/dL (12.9-16.9); INR 1.1; Immature Granulocytes % 0.4 % (0-4); Lymphocytes # 0.7 K/mcL (0.6-4.6); Mean Corpuscular HGB Conc 32.4 g/dL (31.6-35.5); Mean Corpuscular Hemoglobin 30.4 pg (28.0-33.3); Mean Corpuscular Volume 93.9 fL (83.0-100.0); Mean Platelet Volume 9.1 fL (9.4-12.4); Monocytes # 0.6 K/mcL (0.0-1.3); Monocytes % 7.7 %; Neutrophils # 6.6 K/mcL (1.6-8.9); Platelet Count 207 K/mcL (140-400); Prothrombin Time 11.4 Seconds (9.4-12.1); Red Blood Count 3.78 M/mcL (4.19-5.50); Red Cell Distribution Width 18.2 % (11.5-14.5)
[2017-04-06 18:06] LABS: Activated Partial Thrombo Time 25.4 Seconds (26.0-36.0)
[2017-04-06 18:14] LABS: BUN/Creatinine Ratio 25 (6-26); Blood Urea Nitrogen 13 mg/dL (8-23); Carbon Dioxide 27 mEq/L (23-29); Chloride 104 mEq/L (98-107); Glucose 99 mg/dL (70-105); Osmolality,Calculated 282 (280-300); Potassium 4.2 mEq/L (3.5-5.1); Sodium 136 mEq/L (136-145); eGFR For African Americans > 60 (> 60); eGFR For Non-African Americans > 60 (> 60)
[2017-04-06] MEDS ORDERED: Naloxone 0.4 MG/ML INJ IVP PRN (20:14)
[2017-04-06] MEDS ORDERED: Ondansetron ODT 4 MG TAB.RAPDIS SL PRN (20:14)
[2017-04-06] MEDS ORDERED: Albuterol 2.5 MG/3 ML NEBULIZER IH PRN (20:19)
--- NOTE | 2017-04-06 20:25 | Internal Med History&Physical ---
<Neo Love - Last Filed: 04/07/17 00:24> Date of Encounter: 04/07/17 Time of Encounter: 20:00 Assessment and Plan (1) Lower gastrointestinal hemorrhage Current visit: Yes Status: Acute Ongoing for about a month; likely secondary to radiotherapy recent history of colonoscopy with ablation to bleeding lesions most recent hemoglobin level has been 11.5 g; will continue to trend hemoglobin starting tomorrow a.m. awaiting consult by gastroenterology with consideration of possible colonoscopy for further evaluation of bleeding source; will follow with GI service for further interventions/recommendations will have patient NPO as of midnight (2) Rectal cancer Current visit: No Status: Acute follows with Dr. Angus Benavides; initial diagnosis in December 2015 continue current PO home chemotherapeutic medication has completed course of radiotherapy (3) Loss of appetite Current visit: Yes Status: Acute Chronic and stable patient is not cachectic in appearance and is able to sustain adequate oral intake (4) COPD (chronic obstructive pulmonary disease) Current visit: No Status: Acute Nasal oxygen to maintain saturations above 90% albuterol treatment scheduled PRN for shortness of air lung sounds clear; do not suspect acute exacerbation of COPD patient denies smoking Qualifiers: COPD type: emphysema Emphysema type: unspecified Qualified Code(s): J43.9 - Emphysema, unspecified (5) DVT prophylaxis Current visit: Yes Status: Acute will defer pharmacologic prophylaxis ambulate patient with assistance 3 times day as well as apply SCDs while supine Internal Medicine - H&P: HPI Admitted From: Emergency Dept Plans for Post Hospital Care: Home History of present illness: Mr. Zambrano is a 76 year old male with known history of stage for rectal cancer who presents for further evaluation of ongoing rectal bleeding. Initial diagnosis in December of 2015. Ongoing rectal bleeding for approximately 1 month ; patient states passing solid clots independent of stools. No other acute GI symptoms per patient including nausea, vomiting, diarrhea, or constipation. Does have chronic anorexia, but is able to sustain meals. States has had recent colonoscopy with ablations of rectocolonic lesions. Also states had cholecystectomy and partial liver resection in September 2016. Admit via ED for ongoing evaluation by Oncology and GI (Dr. Veronica consulted per ED ). Also c/o mild shortness of air; states has "chest cold". History of COPD; patient does not smoke. Past Med Surg Social Fam HX - Past Medical History Attestation: Yes The following information was validated with the patient. Medical history: cancer, CVA Psychiatric history: no psych history - Past Surgical History Surgical History: cholecystectomy, herniorrhaphy, other - Social History Smoking Status: Never smoker Smokeless Tobacco Status: No Alcohol use: none Drug use: none - Family History Sister Hx Family Cancer: Yes (colon cancer) Internal Medicine - H&P: Meds OxyCODONE Immed Rel [Roxicodone 5 MG] 5 mg PO Q4H PRN 06/24/16 [History] Megestrol Acetate [Megace] 800 mg PO DAILY #400 mls 01/05/17 [Rx] Albuterol Sulfate [Albuterol Inhaler] 2 puff IH Q4H PRN 03/16/17 [History] Capecitabine [Xeloda] 1,000 mg PO AD #56 tablet 03/30/17 [Rx] 3 Allergy/AdvReac Type Severity Reaction Status Date / Time No Known Allergies Allergy Verified 03/30/17 09:31 All Systems PM: A 10-system review of systems was performed and is negative for pertinent findings except as documented above in the HPI. Review of systems: As per HPI - Constitutional Vitals: Temp Pulse Resp BP Pulse Ox 97.4 F L 70 14 114/83 95 04/06/17 17:17 04/06/17 19:02 04/06/17 20:16 04/06/17 20:16 04/06/17 19:02 Exam: CONSTITUTIONAL: Alert and oriented X3, well-nourished, well appearing, in no apparent distress HEAD: Normocephalic; atraumatic. EYES: PERRL, no scleral icterus, no drainage, no conjunctival injection NOSE: The nose is normal in appearance without rhinorrhea Oropharynx: pink/moist, no tonsillar edema/erythema/exudates RESP: NRD without use of accessory musculature, saturating mid-90s on 2 L of oxygen by nasal cannula, CTA b/l with no wheezes/rales/rhonchi CARD: Regular rhythm, without murmurs, rubs, or gallop ABD: grossly normal, soft, tender to palpation in the epigastric region without any rigidity, or distention SKIN: normal appearance, no pallor/diaphoresis,mottling,jaundice,cyanosis EXT: Rad pulses 2+ and symmetrical; no lateralizing edema; no other lesions seen PSYCH: appropriate mood/affect Internal Med - H&P Results - Labs CBC & Chem 7: 04/06/17 17:52 04/06/17 17:52 <Alex Guillory - Last Filed: 04/07/17 03:26> Date of Encounter: 04/07/17 Time of Encounter: 00:30 Internal Medicine - H&P: HPI Chief complaint: Rectal bleeding - Constitutional Constitutional: no chills, no fever(s), no night sweats - EENT Eyes: no blurry vision, no change in vision Ears: no ear pain, no tinnitus Nose, mouth and throat: no nasal congestion, no sore throat - Cardiovascular Cardiovascular ROS IM: no chest pain, no dyspnea, no dyspnea on exertion, no edema - Respiratory Respiratory: no cough, no hemoptysis, no chest congestion - Gastrointestinal Gastrointestinal: cramping, diarrhea, hematochezia, no abdominal pain, no heartburn, no hematemesis, no melena, no nausea, no vomiting - Genitourinary Genitourinary ROS male: no dysuria, no flank pain, no hematuria - Musculoskeletal Musculoskeletal ROS IM: no arthralgias, no back pain - Integumentary Integumentary IM: no rash, no jaundice - Neurological Neurological ROS: no dizziness, no focal weakness, no frequent falls - Psychiatric Psychiatric: no anxiety, no depression - Endocrine Endocrine IM: no polydipsia, no polyuria - Hematologic/Lymphatic Hematologic/Lymphatic: no easy bruising, no lymphadenopathy - Allergic/Immunologic Allergic/Immunologic: no wheezing, no GI upset with certain foods - Constitutional Vitals: Temp Pulse Resp BP Pulse Ox 97.8 F 72 14 124/75 98 04/06/17 23:25 04/06/17 23:25 04/06/17 23:25 04/06/17 23:25 04/06/17 23:25 General appearance: Present: cooperative, A&O X 3, pleasant, answers questions appropriately - Eye Eye exam: Present: PERRL. Absent: scleral icterus - ENT ENT exam: Present: mucous membranes dry, normal exam - Neck Neck exam general surgery: Present: supple. Absent: tenderness - Respiratory Respiratory exam: Present: CTAB. Absent: rales, rhonchi, wheezes - Cardiovascular Cardiovascular exam: Present: RRR, +S1, +S2 - GI/Abdominal GI/Abdominal exam: Present: normal bowel sounds, soft. Absent: guarding, mass, rebound, tenderness - Extremities Exam Extremities exam: Present: full ROM. Absent: calf tenderness, joint swelling - Back Exam Back exam: Absent: CVA tenderness (L), CVA tenderness (R) - Neurological Exam Neurological exam: Present: no focal deficits - Psychiatric Psychiatric exam: Present: normal affect, normal mood - Skin Skin exam: Present: dry, warm. Absent: rash Internal Med - H&P Results - Labs CBC & Chem 7: 04/06/17 17:52 04/06/17 17:52 - Attending Attestation I discussed the patient ALATNA, PMH, ROS, lab data, and exam findings with Dr. Love. I then saw and examined patient independently as well. Patient denies any problems other than his rectal bleeding, passing clots at times, and concern for anemia. Patient has been following with Oncology for his cancer treatments. He had recent colonoscopy last month where he required coagulation of his bleeding sites. He will likely need such procedure again. GI has been consulted through ER, and we'll consult oncology as well for further assistance and guidance. Other than my comments above and noted exam findings, I agree with Dr. Love' assessment and plan.
[2017-04-06] MEDS ORDERED: (Capecitabine [Xeloda] 1,000 MG) PO SCH (20:30)
[2017-04-06] MEDS: *HR* OxyCODONE Immed Rel 5 MG TABLET PO SCH (23:57)
[2017-04-07] MEDS: *HR* OxyCODONE Immed Rel 5 MG TABLET PO SCH ×4 (04:51→20:12)
[2017-04-07] MEDS: Acetaminophen 325 MG TABLET PO PRN ×2 (06:03→22:31)
[2017-04-07 07:07] LABS: Basophils % 0.4 %; Eosinophils # 0.1 K/mcL (0.0-0.6); Eosinophils % 0.9 %; Hematocrit 35.5 % (37.5-50.1); Immature Granulocytes % 0.3 % (0-4); Lymphocytes # 0.7 K/mcL (0.6-4.6); Lymphocytes % 9.5 %; Mean Corpuscular Hemoglobin 29.1 pg (28.0-33.3); Mean Corpuscular Volume 93.9 fL (83.0-100.0); Mean Platelet Volume 9.6 fL (9.4-12.4); Monocytes # 0.7 K/mcL (0.0-1.3); Monocytes % 9.7 %; Neutrophils # 5.6 K/mcL (1.6-8.9); Platelet Count 233 K/mcL (140-400); Red Blood Count 3.78 M/mcL (4.19-5.50); Red Cell Distribution Width 18.1 % (11.5-14.5); Segmented Neutrophils % 79.2 %
[2017-04-07 07:36] LABS: Alanine Aminotransferase 23 Units/L (7-52); Albumin 3.2 g/dL (3.5-5.7); Albumin/Globulin Ratio 1.2 (1.1-2.2); Alkaline Phosphatase 85 Units/L (34-104); Aspartate Amino Transferase 35 Units/L (13-39); BUN/Creatinine Ratio 23 (6-26); Bilirubin,Total 0.8 mg/dL (0.3-1.0); Blood Urea Nitrogen 12 mg/dL (8-23); Calcium 8.8 mg/dL (8.6-10.3); Carbon Dioxide 28 mEq/L (23-29); Chloride 105 mEq/L (98-107); Globulin 2.7 g/dL (2.4-3.5); Glucose 93 mg/dL (70-105); Osmolality,Calculated 285 (280-300); Potassium 3.9 mEq/L (3.5-5.1); Sodium 138 mEq/L (136-145); Total Protein 5.9 g/dL (6.4-8.9); eGFR For African Americans > 60 (> 60); eGFR For Non-African Americans > 60 (> 60)
[2017-04-07] MEDS ORDERED: Patient Taking Own Medication 1 EACH PO SCH (11:00)
[2017-04-07] MEDS: Megestrol Acetate 400 MG/10 ML UDC PO SCH (11:03)
--- NOTE | 2017-04-07 12:20 | Electrocardiograph Report ---
[place] [id number] Test Date: 2017-04-06 Pat Name: Mamadou Zambrano Department: 104 Room: 3A Gender: M Book Jogger: AM : 1940 Requested By: Nicolas Dorado Order Number: [id number] Reading MD: Ethan Dumont MD Measurements Intervals [place] Rate: 74 P: 50 GA: 174 QRS: 7 QRSD: 86 T: 28 QT: 347 QTc: 374 Interpretive Statements SINUS RHYTHM BASELINE ARTIFACT Electronically Signed On 04-07-2017 12:18:35 EST by Ethan Dumont MD
--- NOTE | 2017-04-07 13:58 | Gastroenterology Consult Note ---
<Amara Arroyo - Last Filed: 04/07/17 13:51> Date of Encounter: 04/07/17 Time of Encounter: 11:15 - Assessment and plan (1) Radiation proctitis Current Visit: Yes Status: Acute Assessment and plan: Pt has a history of rectal cancer and radiation proctitis, last colonoscopy . He presents with bright red rectal bleeding with some passage of clots. Will prep with tap water enemas and repeat sigmoidoscopy today. Monitor H&H. (2) Bright red rectal bleeding Current Visit: Yes Status: Acute (3) Rectal cancer Current Visit: No Status: Acute - Time Spent With Patient Total time spent is greater than 50% in coordination of care (as documented) at patient's floor/unit and/or counseling patient: GI History of Present Illness - Data of Consult Patient: known to practice within the last 3 years Consult date: 04/07/17 Requesting Physician: Sami Cobb - Consult Narrative Reason for consult: rectal bleed History of present illness: Mr. Zambrano is a 76 year old male with PMHx of stage IV colon cancer (with mets to liver) diagnosed 12/2015 s/p surgery, radiation, and currently on chemotherapy, s/p left lateral liver segmentectomy 09/2016. He was seen for ongoing rectal bleeding February 2017 and had multiple angioectaias treated with APC. He states he has had continued bright red rectal bleeding since that time and has been wearing a depends because he has bleeding even when his bowels dont move. He also reports passing blood clots at times. He denies any nausea, vomiting, abdominal pain, diarrhea or constipation. He does complain of chronic anorexia, but is able to sustain meals. He also has continued abdominal tenderness to surgical site from 10/05. On admission his Hgb was 11 which is down from 13 on 03/30/17. Colonoscopy 03/18/17 Dr Veronica multiple angioectasias treated with APC 12/14/2016 Dr. Jackson: Diverticulosis, radiation colitis , multiple telengectasia 09/2015: low-grade rectal adenocarcinoma NSAIDs: None Anticoagulation: None Past Med Surg Social Fam HX - Past Medical History Medical history: cancer, CVA Psychiatric history: no psych history - Past Surgical History Surgical History: cholecystectomy, herniorrhaphy, other - Social History Smoking Status: Never smoker Smokeless Tobacco Status: No Alcohol use: none Drug use: none - Family History Sister Hx Family Cancer: Yes (colon cancer) Review of Systems: GI: as per [place] GENERAL: denies fever, has some chills EYES: denies yellow discoloration ENT: denies pain with swallowing or difficulty swallowing CARDIO: denies chest pain, palpitations RESP: No Shortness of breath with exertion : denies change in color of urine NEURO: weakness HEME: Denies any bruising MS: denies joint pain, joint swelling or back pain. DERM: denies rash or itching PSYCH: Denies history of anxiety or depression - Constitutional Vitals: Temp Pulse Resp BP Pulse Ox 97.7 F 70 16 91/57 94 04/07/17 10:42 04/07/17 10:42 04/07/17 10:42 04/07/17 10:42 04/07/17 10:42 Exam: CONSTITUTIONAL:~alert, no acute distress.~HEAD:~normocephalic.~EYES:~no jaundice.~NECK:~no obvious swelling.~HEART:~regular rate and rhythm, no murmurs. ~LUNGS:~bilateral good air entry.~ABDOMEN:~non distended, tender to midline scar , unable to palpate for masses or organomegaly due to tenderness, no organomegaly.~RECTAL EXAM:~Deferred.~EXTREMITIES:~no clubbing, cyanosis or edema.~SKIN:~no stigmata of chronic liver disease, pallor noted.~NEUROLOGIC:~no obvious focal defect.~~~~ Results - Labs CBC & Chem 7: 04/07/17 06:48 04/07/17 06:48 Labs: Last Result Calcium 8.8 mg/dL (8.6-10.3) 04/07/17 06:48 Entire Visit Hgb 11.0 g/dL (12.9-16.9) L 04/07/17 06:48 Hct 35.5 % (37.5-50.1) L 04/07/17 06:48 PT 11.4 Seconds (9.4-12.1) 04/06/17 17:52 Total Bilirubin 0.8 mg/dL (0.3-1.0) 04/07/17 06:48 AST 35 Units/L (13-39) 04/07/17 06:48 ALT 23 Units/L (7-52) 04/07/17 06:48 - ABG ABG results: PT/INR, D-dimer PT 11.4 Seconds (9.4-12.1) 04/06/17 17:52 Consult Discharge Plan - Plan Referrals: [facility] [Outside] - 04/14/17 9:45 am <Noelle Veronica - Last Filed: 04/08/17 14:35> Date of Encounter: 04/07/17 Time of Encounter: 17:15 - Time Spent With Patient Total time spent is greater than 50% in coordination of care (as documented) at patient's floor/unit and/or counseling patient: GI History of Present Illness - Data of Consult Requesting Physician: Sami Cobb - Consult Narrative History of present illness: Mr. Zambrano is a 76 year old male - Constitutional Vitals: Temp Pulse Resp BP Pulse Ox 97.3 F L 74 14 95/59 95 04/08/17 11:02 04/08/17 11:02 04/08/17 11:02 04/08/17 11:02 04/08/17 11:02 Results - Labs CBC & Chem 7: 04/08/17 09:00 04/08/17 09:00 Labs: Last Result Calcium 8.6 mg/dL (8.6-10.3) 04/08/17 09:00 Entire Visit Hgb 11.3 g/dL (12.9-16.9) L 04/08/17 09:00 Hct 35.4 % (37.5-50.1) L 04/08/17 09:00 PT 11.4 Seconds (9.4-12.1) 04/06/17 17:52 Total Bilirubin 0.8 mg/dL (0.3-1.0) 04/07/17 06:48 AST 35 Units/L (13-39) 04/07/17 06:48 ALT 23 Units/L (7-52) 04/07/17 06:48 - ABG ABG results: PT/INR, D-dimer PT 11.4 Seconds (9.4-12.1) 04/06/17 17:52 - Impressions Impressions Biopsy CT 04/08/17 00:00 IMPRESSION: Successful CT guided core biopsy right anterior peritoneal lesion. D/ / Bry Lazaro MD / Bry Lazaro MD Interpreting Provider: Bry Lazaro MD - Attending Attestation I examined this patient and my medical decision-making was reviewed with the Resident Physician. I agree with the documented findings, disposition and treatment plan as described except to the extent set forth below.
--- NOTE | 2017-04-07 17:27 | Internal Med Progress Note ---
Date of Encounter: 04/07/17 Time of Encounter: 11:00 - Assessment and plan (1) Bright red rectal bleeding Current Visit: Yes Status: Acute Assessment and plan: -Patient with bright red rectal bleeding with some passage of clots. -GI consulted with recommendations for repeat sigmoidoscopy on 04/07/17 -Patient's H&H is stable; will continue to monitor (2) Rectal cancer Current Visit: No Status: Acute Assessment and plan: -Patient with a past medical history of stage IV colon cancer (with mets to liver) diagnosed 12/2015 s/p surgery, radiation, and currently on chemotherapy, s/p left lateral liver segmentectomy 09/2016. -[employer]iter/oncologist consult and appreciate recommendations. (3) COPD (chronic obstructive pulmonary disease) Current Visit: No Status: Acute Assessment and plan: -Stable; continue Aerolized breathing treatments as needed Qualifiers: COPD type: emphysema Emphysema type: unspecified Qualified Code(s): J43.9 - Emphysema, unspecified - Subjective Interval history: Patient's hemoglobin/hematocrit stable with history of rectal bleeding secondary to rectal cancer. GI and hematology/oncology following. - Constitutional Vitals: Temp Pulse Resp BP Pulse Ox 97.4 F L 75 18 96/65 97 04/07/17 14:31 04/07/17 14:31 04/07/17 14:31 04/07/17 14:31 04/07/17 14:31 General appearance: Present: cooperative, A&O X 3, pleasant, answers questions appropriately - Respiratory Respiratory exam: Present: CTAB. Absent: accessory muscle use, rales, rhonchi, wheezes - Cardiovascular Cardiovascular exam: Present: RRR, +S1, +S2. Absent: diastolic murmur, gallop, rubs, systolic murmur Internal Medicine: Result - Labs CBC & Chem 7: 04/07/17 06:48 04/07/17 06:48 Labs: Short CBC 04/07/17 Range/Units 06:48 WBC 7.0 (4.3-11.1) K/mcL Hgb 11.0 L (12.9-16.9) g/dL Hct 35.5 L (37.5-50.1) % Plt Count 233 (140-400) K/mcL Neutrophils # 5.6 (1.6-8.9) K/mcL BMP 04/07/17 06:48 Sodium 138 Potassium 3.9 Chloride 105 Carbon Dioxide 28 BUN 12 Creatinine 0.52 L Glucose 93 Calcium 8.8 Liver Function 04/07/17 Range/Units 06:48 Total Bilirubin 0.8 (0.3-1.0) mg/dL AST 35 (13-39) Units/L ALT 23 (7-52) Units/L Alkaline Phosphatase 85 (34-104) Units/L Albumin 3.2 L (3.5-5.7) g/dL - ABG Interpretation ABG results: PT/INR, D-dimer PT 11.4 Seconds (9.4-12.1) 04/06/17 17:52 Consult Discharge Plan - Plan Referrals: [facility] [Outside] - 04/14/17 9:45 am
[2017-04-07] MEDS ORDERED: SODIUM CHLORIDE/NAHCO3/KCL/PEG 4,000 ML SOLN.RECON PO ONE (17:56)
--- NOTE | 2017-04-07 20:37 | Internal Med History&Physical ---
Date of Encounter: 04/07/17 Time of Encounter: 20:37 Internal Medicine - H&P: HPI History of present illness: Mr. Zambrano is a 76 year old male Past Med Surg Social Fam HX - Past Medical History Medical history: cancer, CVA Psychiatric history: no psych history - Past Surgical History Surgical History: cholecystectomy, herniorrhaphy, other - Social History Smoking Status: Never smoker Smokeless Tobacco Status: No Alcohol use: none Drug use: none - Family History Sister Hx Family Cancer: Yes (colon cancer) Internal Medicine - H&P: Meds OxyCODONE Immed Rel [Roxicodone 5 MG] 5 mg PO Q4H PRN 06/24/16 [History] Megestrol Acetate [Megace] 800 mg PO DAILY #400 mls 01/05/17 [Rx] Albuterol Sulfate [Albuterol Inhaler] 2 puff IH Q4H PRN 03/16/17 [History] Capecitabine [Xeloda] 1,000 mg PO AD #56 tablet 03/30/17 [Rx] 3 Allergy/AdvReac Type Severity Reaction Status Date / Time No Known Allergies Allergy Verified 03/30/17 09:31 All Systems PM: A 10-system review of systems was performed and is negative for pertinent findings except as documented above in the HPI. - Constitutional Vitals: Temp Pulse Resp BP Pulse Ox 97.9 F 75 16 110/67 93 04/07/17 19:37 04/07/17 19:37 04/07/17 19:37 04/07/17 19:37 04/07/17 19:37 General appearance: Present: cooperative, A&O X 3, pleasant, answers questions appropriately Internal Med - H&P Results - Labs CBC & Chem 7: 04/07/17 06:48 04/07/17 06:48 Labs: Short CBC 04/07/17 Range/Units 06:48 WBC 7.0 (4.3-11.1) K/mcL Hgb 11.0 L (12.9-16.9) g/dL Hct 35.5 L (37.5-50.1) % Plt Count 233 (140-400) K/mcL Neutrophils # 5.6 (1.6-8.9) K/mcL BMP 04/07/17 06:48 Sodium 138 Potassium 3.9 Chloride 105 Carbon Dioxide 28 BUN 12 Creatinine 0.52 L Glucose 93 Calcium 8.8 Liver Function 04/07/17 Range/Units 06:48 Total Bilirubin 0.8 (0.3-1.0) mg/dL AST 35 (13-39) Units/L ALT 23 (7-52) Units/L Alkaline Phosphatase 85 (34-104) Units/L Albumin 3.2 L (3.5-5.7) g/dL
[2017-04-07] MEDS: 0.9 % Sodium Chloride 1,000 ML IVC SCH (22:02)
[2017-04-08] MEDS: *HR* OxyCODONE Immed Rel 5 MG TABLET PO SCH ×6 (04:16→20:56)
--- NOTE | 2017-04-08 08:05 | Oncology Inp Consult Note ---
Date of Encounter: 04/08/17 Time of Encounter: 17:00 Assessment and Plan (1) Rectal cancer Status: Acute Assessment and plan: Rectal cancer-s/p neoadjuvant chemoRT and chemotherapy, s/p resection of liver mets, post operative chemotherapy, now on PO xeloda--which is being held discussed with in patient pharmacy. Primary tumor not resected. s/p multiple scopes-no evidence of recurrence, CEA normal. Rectal bleeding--recurrent likely from radiation proctitis, s/p APC recently. Hold xeloda He is planned for sigmoidoscopy again for today with oral as not prepped with enema, per DR Veronica. Out pt peritoneal nodule bx was ordered due to increased radioglucose uptake in PET from 04/08. Possibly could be done today--Discussed with IR today Hgb/Hct is stable. Plan of care discussed with patient. - Data of Consult Requesting Physician: Sami Cobb Primary Care Provider: [facility]CP [place] - Consult Narrative Reason for consult: rectal cancer, bleeding History of present illness: 76-year-old male with medical history significant for melanoma, history of stroke, seen gastroenterology in September 2015 for hematochezia and diarrhea. Reports from the [facility] showed a rectal mass colonic polyposis and diverticulosis. Biopsy was consistent with low-grade rectal adenocarcinoma. He has had CT imaging that showed rectal thickening and a 5 cm lesion in the left lobe of the liver. 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 Asymmetric circumferential thickening of post lateral wall of rectum greater on the left measuring 13mm, with extension into the anus 11cm in length. SUV of 10.7 CT wo contrast did not show liver lesion for biopsy. He started neoadjuvant XELOX 03/06 tolerated well, s/p MACHINIST MATE, was seen by surgery at the [facility] Dr. Stevens and rectal exam did not reveal any significant masses. He underwent further chemotherapy and surgical resection of liver mets--left lateral liver segmentectomy.--. Pathology report from September 2016 showed adenocarcinoma consistent with colonic origin surgical margin negative for cancer metastatic deposit measured 4 cm x 4 cm. Nodule in the peritoneal surface of the diaphragm was biopsied but was negative for cancer. He had complained of rectal bleed and underwent colonoscopy 12/14/16 He had repeat scope 02/05--no evidence of recurrence. He has on and off bleeding from angioectasia from radiation. REimaging PET 04/08 showed increased uptake at site of surgical resection in the liver and abdomen/peritineal nodule, compared to few wks ago. He is hospitalized with rectal bleeding and is being seen by GI as well for possible scope tomorrow after oral prep. His abd discomfort under control, [facility]. 12pt ROS significant for bleeding otherwise negative Past Med Surg Social Fam HX - Past Medical History Medical history: cancer, CVA Psychiatric history: no psych history - Past Surgical History Surgical History: cholecystectomy, herniorrhaphy, other - Social History Smoking Status: Never smoker Smokeless Tobacco Status: No Alcohol use: none Drug use: none - Family History Sister Hx Family Cancer: Yes (colon cancer) Medications and Allergies OxyCODONE Immed Rel [Roxicodone 5 MG] 5 mg PO Q4H PRN 06/24/16 [History] Megestrol Acetate [Megace] 800 mg PO DAILY #400 mls 01/05/17 [Rx] Albuterol Sulfate [Albuterol Inhaler] 2 puff IH Q4H PRN 03/16/17 [History] Capecitabine [Xeloda] 1,000 mg PO AD #56 tablet 03/30/17 [Rx] 3 Allergy/AdvReac Type Severity Reaction Status Date / Time No Known Allergies Allergy Verified 03/30/17 09:31 Review of systems: as in HPI Oncology - Exam - Constitutional Vitals: Temp Pulse Resp BP Pulse Ox 97.5 F L 70 18 108/71 97 04/08/17 06:54 04/08/17 06:54 04/08/17 06:54 04/08/17 06:54 04/08/17 06:54 General appearance: average body habitus - Head Head exam: Present: atraumatic, normal inspection - Eye Eye exam: Present: sclera anicteric - ENT ENT exam: Present: mucous membranes moist - Neck Neck exam: Present: full ROM - Respiratory Respiratory exam: Present: CTAB - Cardiovascular Cardiovascular exam: Present: +S1, +S2 - GI/Abdominal GI/Abdominal exam: Present: normal bowel sounds, soft - Extremities Exam Extremities exam: Present: normal inspection Consult Discharge Plan - Plan Referrals: [facility] [Outside] - 04/14/17 9:45 am
[2017-04-08] MEDS: 0.9 % Sodium Chloride 1,000 ML IVC SCH (08:52)
[2017-04-08] MEDS: Megestrol Acetate 400 MG/10 ML UDC PO SCH (08:53)
[2017-04-08 09:18] LABS: Basophils % 0.7 %; Eosinophils # 0.1 K/mcL (0.0-0.6); Eosinophils % 0.8 %; Hematocrit 35.4 % (37.5-50.1); Hemoglobin 11.3 g/dL (12.9-16.9); Immature Granulocytes % 0.5 % (0-4); Lymphocytes # 0.5 K/mcL (0.6-4.6); Mean Corpuscular HGB Conc 31.9 g/dL (31.6-35.5); Mean Corpuscular Hemoglobin 30.4 pg (28.0-33.3); Mean Corpuscular Volume 95.2 fL (83.0-100.0); Mean Platelet Volume 9.2 fL (9.4-12.4); Monocytes # 0.6 K/mcL (0.0-1.3); Neutrophils # 4.9 K/mcL (1.6-8.9); Platelet Count 199 K/mcL (140-400); Red Blood Count 3.72 M/mcL (4.19-5.50); Red Cell Distribution Width 17.8 % (11.5-14.5)
[2017-04-08 09:32] LABS: BUN/Creatinine Ratio 31 (6-26); Blood Urea Nitrogen 16 mg/dL (8-23); Calcium 8.6 mg/dL (8.6-10.3); Carbon Dioxide 27 mEq/L (23-29); Chloride 107 mEq/L (98-107); Glucose 80 mg/dL (70-105); Osmolality,Calculated 288 (280-300); Sodium 139 mEq/L (136-145); eGFR For African Americans > 60 (> 60); eGFR For Non-African Americans > 60 (> 60)
[2017-04-08] MEDS ORDERED: *HR* Midazolam HCl 5 MG/5 ML VIAL IVP ONE ×2 (16:58→17:35)
[2017-04-08] MEDS ORDERED: *HR* FentaNYL (PF) 100 MCG/2 ML VIAL ONE (16:59)
--- NOTE | 2017-04-08 17:26 | Internal Med Progress Note ---
Date of Encounter: 04/08/17 Time of Encounter: 11:00 - Assessment and plan (1) Bright red rectal bleeding Current Visit: Yes Status: Acute Assessment and plan: -Patient with bright red rectal bleeding with some passage of clots. -GI consulted with recommendations for repeat sigmoidoscopy on 04/08/17 -Patient's H&H is stable; will continue to monitor (2) Rectal cancer Current Visit: No Status: Acute Assessment and plan: -Patient with a past medical history of stage IV colon cancer (with mets to liver) diagnosed 12/2015 s/p surgery, radiation, and currently on chemotherapy, s/p left lateral liver segmentectomy 09/2016. -Gamemaster/oncologist consulted with recommendations for a peritoneal lynda biopsy today. (3) COPD (chronic obstructive pulmonary disease) Current Visit: No Status: Acute Assessment and plan: -Stable; continue Aerolized breathing treatments as needed Qualifiers: COPD type: emphysema Emphysema type: unspecified Qualified Code(s): J43.9 - Emphysema, unspecified - Subjective Interval history: Patient's hemoglobin/hematocrit stable with history of rectal bleeding secondary to rectal cancer. Patient went for a sigmoidoscopy today per GI patient's and went earlier for a peritoneal lynda biopsy per hematology/oncology recommendations. He denies any further rectal bleeding. - Constitutional Vitals: Temp Pulse Resp BP Pulse Ox 97.5 F L 66 16 105/68 96 04/08/17 14:52 04/08/17 17:20 04/08/17 17:20 04/08/17 17:20 04/08/17 17:20 General appearance: Present: cooperative, A&O X 3, pleasant, answers questions appropriately - Respiratory Respiratory exam: Present: CTAB. Absent: accessory muscle use, rales, rhonchi, wheezes - Cardiovascular Cardiovascular exam: Present: RRR, +S1, +S2. Absent: diastolic murmur, gallop, rubs, systolic murmur Internal Medicine: Result - Labs CBC & Chem 7: 04/08/17 09:00 04/08/17 09:00 Labs: Short CBC 04/08/17 Range/Units 09:00 WBC 6.1 (4.3-11.1) K/mcL Hgb 11.3 L (12.9-16.9) g/dL Hct 35.4 L (37.5-50.1) % Plt Count 199 (140-400) K/mcL Neutrophils # 4.9 (1.6-8.9) K/mcL BMP 04/08/17 09:00 Sodium 139 Potassium 4.0 Chloride 107 Carbon Dioxide 27 BUN 16 Creatinine 0.52 L Glucose 80 Calcium 8.6 - ABG Interpretation ABG results: PT/INR, D-dimer PT 11.4 Seconds (9.4-12.1) 04/06/17 17:52 - Impressions Impressions Biopsy CT 04/08/17 00:00 IMPRESSION: Successful CT guided core biopsy right anterior peritoneal lesion. D/ / Bry Lazaro MD / Bry Lazaro MD Interpreting Provider: Bry Lazaro MD Consult Discharge Plan - Plan Referrals: [facility] [Outside] - 04/14/17 9:45 am
[2017-04-08] MEDS ORDERED: 0.9 % Sodium Chloride 500 ML IVC SCH (17:30)
[2017-04-08] MEDS ORDERED: *HR* FentaNYL (PF) 100 MCG/2 ML VIAL IVP ONE (17:35)
[2017-04-08] MEDS ORDERED: Simethicone 40 MG/0.6 ML MLS IR ONE (17:35)
--- NOTE | 2017-04-08 17:36 | Pre-Sedation Evaluation ---
Pre-sedation evaluation - Pre-sedation checklist Date of procedure: 04/08/17 Procedure: Colonscopy Recent Vitals: Last Vital Signs Temp 97.5 F L 04/08/17 14:52 Pulse 66 04/08/17 17:20 Resp 16 04/08/17 17:20 BP 105/68 04/08/17 17:20 Pulse Ox 96 04/08/17 17:20 H&P (including ROS) documented in medical record: Yes Previous reaction to sedatives/anesthetics: No Dietary Status: NPO after Midnight Dentition: No loose teeth or bridges ASA Classification *see protocol: CLASS III-Severe systemic disease Plan of Care: Pt appropriate candidate for procedure/moderate/conscious sedation , Risks/benefits of procedure/sedation discussed w/ patient/family
[2017-04-09] MEDS: 0.9 % Sodium Chloride 1,000 ML IVC SCH ×2 (00:45→11:04)
[2017-04-09] MEDS: *HR* OxyCODONE Immed Rel 5 MG TABLET PO SCH ×4 (00:49→12:42)
[2017-04-09 04:48] LABS: BUN/Creatinine Ratio 28 (6-26); Blood Urea Nitrogen 13 mg/dL (8-23); Calcium 8.4 mg/dL (8.6-10.3); Carbon Dioxide 25 mEq/L (23-29); Chloride 109 mEq/L (98-107); Glucose 85 mg/dL (70-105); Osmolality,Calculated 287 (280-300); Potassium 3.9 mEq/L (3.5-5.1); Sodium 139 mEq/L (136-145); eGFR For African Americans > 60 (> 60); eGFR For Non-African Americans > 60 (> 60)
[2017-04-09 06:19] LABS: Basophils % 0.4 %; Eosinophils % 0.4 %; Hematocrit 31.6 % (37.5-50.1); Immature Granulocytes % 0.5 % (0-4); Lymphocytes # 0.5 K/mcL (0.6-4.6); Lymphocytes % 6.4 %; Mean Corpuscular HGB Conc 31.6 g/dL (31.6-35.5); Mean Corpuscular Hemoglobin 30.2 pg (28.0-33.3); Mean Corpuscular Volume 95.5 fL (83.0-100.0); Mean Platelet Volume 9.7 fL (9.4-12.4); Monocytes # 0.9 K/mcL (0.0-1.3); Monocytes % 11.8 %; Neutrophils # 6.1 K/mcL (1.6-8.9); Platelet Count 176 K/mcL (140-400); Red Blood Count 3.31 M/mcL (4.19-5.50); Red Cell Distribution Width 17.8 % (11.5-14.5); Segmented Neutrophils % 80.5 %
[2017-04-09] MEDS: Megestrol Acetate 400 MG/10 ML UDC PO SCH (08:32)
[2017-04-09] MEDS ORDERED: *HR* OxyCODONE Immed Rel 5 MG TABLET PO PRN (14:40)
--- NOTE | 2017-04-09 14:58 | Discharge Summary ---
Date of Encounter: 04/09/17 Time of Encounter: 11:00 - Discharge Diagnosis (1) Bright red rectal bleeding Priority: Primary Status: Acute (2) Rectal cancer Priority: Primary Status: Acute (3) COPD (chronic obstructive pulmonary disease) Priority: Secondary Status: Acute Qualifiers: COPD type: emphysema Emphysema type: unspecified Qualified Code(s): J43.9 - Emphysema, unspecified - Discharge Medications Home Medications: OxyCODONE Immed Rel [Roxicodone 5 MG] 5 mg PO Q4H PRN 06/24/16 [History] Megestrol Acetate [Megace] 800 mg PO DAILY #400 mls 01/05/17 [Rx] Albuterol Sulfate [Albuterol Inhaler] 2 puff IH Q4H PRN 03/16/17 [History] Capecitabine [Xeloda] 1,000 mg PO AD #56 tablet 03/30/17 [Rx] Allergies/Adverse Reactions: 3 Allergy/AdvReac Type Severity Reaction Status Date / Time No Known Allergies Allergy Verified 03/30/17 09:31 Date of admission: 04/08/17 17:29 Primary care physician: PCP [place] - Patient Status Disposition: Home, Self-Care Condition: Fair - Discharge Instructions Follow Up With: [facility] [Outside] - 04/14/17 9:45 am Hospital course: Patient is a 76-year-old male with past medical history significant for stage IV colon cancer (with mets to liver) diagnosed 12/2015 s/p surgery, radiation, and currently on chemotherapy, s/p left lateral liver segmentectomy 09/2016 is into the ER on 04/08/17 due to lower rectal bleeding. Patient reported of ongoing rectal bleeding for approximately 1 month; patient reported of passing solid clots independent of stools. No other acute GI symptoms per patient including nausea, vomiting, diarrhea, or constipation. Does have chronic anorexia, but is able to sustain meals. States has had recent colonoscopy with ablations of rectocolonic lesions. Also [facility] had cholecystectomy and partial liver resection in September 2016. Patient was admitted for ongoing evaluation by Oncology and GI (Dr. Veronica consulted per ED). During patients hospital stay hematology oncology was consulted with recommendations for a peritoneal node biopsy which was done on 04/08/17. GI was also consulted with recommendations for sigmoidoscopy which showed multiple large diffuse severe angioectasias with previous bleeding; coagulation for hemostasis using argon plasma was successful. Recommendations for patient to follow-up with GI in 4 weeks for repeat sigmoidoscopy. Patient will also need to follow-up with hematology/oncology for biopsy results. - Time Spent with Patient Total time spent providing and/or coordinating discharge services: Less than 30 minutes - Constitutional Vitals: Temp Pulse Resp BP Pulse Ox 97.8 F 74 16 103/66 95 04/09/17 11:30 04/09/17 11:30 04/09/17 11:30 04/09/17 11:30 04/09/17 11:30 General appearance: Present: cooperative, A&O X 3, pleasant, answers questions appropriately - Respiratory Respiratory exam: Present: CTAB. Absent: accessory muscle use, rales, rhonchi, wheezes - Cardiovascular Cardiovascular exam: Present: RRR, +S1, +S2. Absent: diastolic murmur, gallop, rubs, systolic murmur - VTE Reasons for not Prescribing Prophylaxis: Medical contraindication
--- NOTE | 2017-04-09 15:47 | Physician Discharge Referral ---
Home Health/Hosp Referral Info Transfer to: Home Health - Diagnosis (1) Bright red rectal bleeding Priority: Primary Status: Acute (2) Rectal cancer Priority: Primary Status: Acute (3) COPD (chronic obstructive pulmonary disease) Priority: Secondary Status: Acute - Respiratory Orders Smoking Cessation: Smoking cessation has been advised. For more information, call the [place] Tobacco Quit Line at 2-118-GDOZ-NOW. - Services Needed Following services are medically necessary services: Home Health Aide, Physical Therapy, Occupational Therapy - Transfer Medications Home Medications: OxyCODONE Immed Rel [Roxicodone 5 MG] 5 mg PO Q4H PRN 06/24/16 [History] Megestrol Acetate [Megace] 800 mg PO DAILY #400 mls 01/05/17 [Rx] Albuterol Sulfate [Albuterol Inhaler] 2 puff IH Q4H PRN 03/16/17 [History] Capecitabine [Xeloda] 1,000 mg PO AD #56 tablet 03/30/17 [Rx] Allergies/Adverse Reactions: 3 Allergy/AdvReac Type Severity Reaction Status Date / Time No Known Allergies Allergy Verified 03/30/17 09:31 Certification: Further, I certify that my clinical findings support that this patient is homebound (i.e. absences from home require considerable and taxing effort and are for medical reasons or orthodox services or infrequently or short duration when for other reasons) because: Homebound Reason: Patient requires assistance of a person or device to safely leave home Attestation: My signature below is to certify that this patient is under my care and that I, or nurse practitioner, or a physician's surgical supply assistant working with me, has a face-to -face encounter with this patient.
[2017-04-10 04:13] LABS: Basophils % 0.3 %; Eosinophils % 0.6 %; Hematocrit 30.4 % (37.5-50.1); Hemoglobin 9.5 g/dL (12.9-16.9); Immature Granulocytes % 0.6 % (0-4); Lymphocytes # 0.6 K/mcL (0.6-4.6); Lymphocytes % 9.9 %; Mean Corpuscular HGB Conc 31.3 g/dL (31.6-35.5); Mean Corpuscular Hemoglobin 29.9 pg (28.0-33.3); Mean Corpuscular Volume 95.6 fL (83.0-100.0); Mean Platelet Volume 9.3 fL (9.4-12.4); Monocytes # 0.8 K/mcL (0.0-1.3); Monocytes % 13.2 %; Neutrophils # 4.7 K/mcL (1.6-8.9); Platelet Count 156 K/mcL (140-400); Red Blood Count 3.18 M/mcL (4.19-5.50); Red Cell Distribution Width 17.6 % (11.5-14.5); Segmented Neutrophils % 75.4 %
[2017-04-10 05:53] LABS: Carbon Dioxide 23 mEq/L (23-29); Chloride 107 mEq/L (98-107); Potassium 3.8 mEq/L (3.5-5.1); Sodium 138 mEq/L (136-145)
[2017-04-10 05:59] LABS: BUN/Creatinine Ratio 15 (6-26); Blood Urea Nitrogen 11 mg/dL (8-23); Glucose 115 mg/dL (70-105); Osmolality,Calculated 286 (280-300); eGFR For African Americans > 60 (> 60); eGFR For Non-African Americans > 60 (> 60)
[2017-04-10 06:47] VITALS: BP 101/66
[2017-04-10] MEDS: Megestrol Acetate 400 MG/10 ML UDC PO SCH (08:38)
--- NOTE | 2017-04-10 18:32 | Event Note ---
Date of Encounter: 04/10/17 Time of Encounter: 11:00 Patient was discharged home earlier today Please see discharge summary
== END 2017-04-10 14:15 | disposition home or self-care (01) | DRG 357 ==
LOC: 3ANU 17:15 → EMEROO 17:15 → 3ANU 20:18
PROVIDERS: ADMIT Internal Medicine; ATTEND Hospitalist